=== PATIENT | male | born 1955 | race Caucasian/White ===

== ENCOUNTER 2021-01-26 10:47 | Emergency (ER) | payer BC, OTHER ==
[~2021-01-26 10:47] MED LIST: FLAGYL500 MG PO
[2021-01-26 11:40] LABS: HEMOGLOBIN 16.1 gm/dl (14.0-17.5); WHITE BLOOD COUNT 5.6 K/UL (4.5-11.0)
[2021-01-26 12:00] LABS: BUN/CREATININE RATIO 21 (0-10)
[2021-01-26] MEDS ORDERED: OMEPRAZOLE20 MG PO (14:47)
[2021-01-26] MEDS ORDERED: CARDURA4 MG PO (14:47)
[2021-01-26] MEDS ORDERED: PRAVASTATIN SOD40 MG PO (14:48)
[2021-01-26] MEDS ORDERED: REVATIO 20 MG T20 MG PO (14:48)
== END 2021-01-26 17:02 | disposition short-term general hospital (02) ==
LOC: ER1 10:47 → CDU 13:34 → ER1 13:34
PROVIDERS: Emergency Medicine
DX: R42 Dizziness and giddiness (principal); I10 Essential (primary) hypertension; E78.5 Hyperlipidemia, unspecified; K21.9 Gastro-esophageal reflux disease without esophagitis; R00.1 Bradycardia, unspecified; Z20.822 Contact with and (suspected) exposure to COVID-19
CPT/HCPCS: 70450; 71045; 80053; 82550; 82553; 83735; 83874; 84439; 84443; 84484; 85025; 93005; 99285; J7030; U0002